=== PATIENT | female | born 1950 | race Caucasian/White ===

== ENCOUNTER 2022-10-06 08:58 | Emergency (ER) | payer MEDICARE ==
[~2022-10-06] VITALS: Ht 160 cm; Wt 50.5 kg
[~2022-10-06 08:58] MED LIST: ATOR20TA PO; DIAZ5TAB5 PO; DISU250T14 PO; DIVA250T8 PO; FLUT16SP26 BOTHNARES; HYDR50TA65 PO; MULT-620 PO; OLME20TA23 PO; THIA100T70 PO; ZALE5CAP2 PO
[2022-10-06] MEDS ORDERED: metoclopramide 5 mg/ml inj IV ONE (09:25)
[2022-10-06] MEDS ORDERED: famotidine/PF 10 mg/ml inj IV ONE (09:25)
[2022-10-06] MEDS ORDERED: normal saline 1000ML IV soln IVB ONE (09:25)
[2022-10-06 09:29] LABS: BASOPHILS % (AUTO) 0.2 % (0-1); EOSINOPHILS % (AUTO) 0.4 % (0-6); HEMATOCRIT 44.6 % (35.0-45.0); HEMOGLOBIN 14.9 g/dl (12.0-16.0); LYMPHOCYTES # (AUTO) 1.4 X10'3 (1.1-4.8); LYMPHOCYTES % (AUTO) 18.9 % (21-51); MEAN CORPUSCULAR HEMOGLOBIN 29.4 PG (27.0-31.0); MEAN CORPUSCULAR HGB CONC 33.4 g/dL (33.0-36.5); MEAN PLATELET VOLUME 8.2 FL (7.4-10.4); MONOCYTES # (AUTO) 0.5 X10'3 (0-0.9); MONOCYTES % (AUTO) 6.8 % (2-12); NEUTROPHILS # (AUTO) 5.3 X10'3 (1.8-7.7); NEUTROPHILS % (AUTO) 73.7 % (42-75); PLATELET COUNT 305 X10'3 (140-440); RED BLOOD COUNT 5.06 X10'6 (4.20-5.60); RED CELL DISTRIBUTION WIDTH 13.9 % (11.5-14.5); WHITE BLOOD COUNT 7.2 X10'3 (4.5-11.0)
[2022-10-06 09:43] LABS: ALANINE AMINOTRANSFERASE 28 U/L (12-78); ALBUMIN 4.7 G/DL (3.4-5.0); ALBUMIN/GLOBULIN RATIO 1.5 (1.1-1.5); ALKALINE PHOSPHATASE 97 IU/L (46-116); ANION GAP 8 (8-16); ASPARTATE AMINO TRANSFERASE 20 U/L (10-37); BILIRUBIN,TOTAL 0.7 MG/DL (0.1-1.0); BLOOD UREA NITROGEN 17 MG/DL (7-18); CALCIUM 9.5 MG/DL (8.5-10.1); CHLORIDE 102 MMOL/L (99-107); GLUCOSE 135 MG/DL (70-104); LIPASE 58 U/L (73-393); POTASSIUM 3.6 MMOL/L (3.5-5.1); SODIUM 139 MMOL/L (135-145); TOTAL CARBON DIOXIDE 28.8 MMOL/L (24-32); TOTAL PROTEIN 7.8 G/DL (6.4-8.2); eGFR 54 ML/MIN
[2022-10-06] MEDS ORDERED: METO-292 PO (10:38)
[2022-10-06 11:17] VITALS: BP 186/77
== END 2022-10-06 11:18 | disposition home or self-care (01) ==
LOC: ER 08:58
DX: R11.2 Nausea with vomiting, unspecified (principal); E86.0 Dehydration; I10 Essential (primary) hypertension; R53.83 Other fatigue; Z88.0 Allergy status to penicillin; Z88.6 Allergy status to analgesic agent
CPT/HCPCS: 36415; 74176; 80053; 83690; 85025; 93005; 96361; 96374; 96375; 99285; J2765; J3490; J7030

== ENCOUNTER 2022-11-10 09:54 | Emergency (ER) | payer MEDICARE ==
[~2022-11-10] VITALS: Ht 160 cm; Wt 52.4 kg
[~2022-11-10 09:54] MED LIST changes: +METO-292 PO
[2022-11-10 10:40] LABS: BASOPHILS % (AUTO) 0.4 % (0-1); EOSINOPHILS % (AUTO) 0.1 % (0-6); HEMATOCRIT 40.6 % (35.0-45.0); HEMOGLOBIN 13.6 g/dl (12.0-16.0); LYMPHOCYTES % (AUTO) 12.5 % (21-51); MEAN CORPUSCULAR HEMOGLOBIN 29.9 PG (27.0-31.0); MEAN CORPUSCULAR HGB CONC 33.4 g/dL (33.0-36.5); MEAN CORPUSCULAR VOLUME 89.4 FL (78-98); MEAN PLATELET VOLUME 8.8 FL (7.4-10.4); MONOCYTES # (AUTO) 0.6 X10'3 (0-0.9); MONOCYTES % (AUTO) 6.6 % (2-12); NEUTROPHILS # (AUTO) 6.8 X10'3 (1.8-7.7); NEUTROPHILS % (AUTO) 80.4 % (42-75); PLATELET COUNT 354 X10'3 (140-440); RED BLOOD COUNT 4.54 X10'6 (4.20-5.60); RED CELL DISTRIBUTION WIDTH 15.2 % (11.5-14.5); WHITE BLOOD COUNT 8.4 X10'3 (4.5-11.0)
[2022-11-10 10:49] LABS: ALANINE AMINOTRANSFERASE 26 U/L (12-78); ALBUMIN 4.3 G/DL (3.4-5.0); ALBUMIN/GLOBULIN RATIO 1.3 (1.1-1.5); ALKALINE PHOSPHATASE 105 IU/L (46-116); ANION GAP 8 (8-16); ASPARTATE AMINO TRANSFERASE 18 U/L (10-37); BILIRUBIN,TOTAL 0.4 MG/DL (0.1-1.0); BLOOD UREA NITROGEN 14 MG/DL (7-18); BUN/CREATININE RATIO 14.1 (10.0-20.0); CHLORIDE 107 MMOL/L (99-107); CREATININE 0.99 MG/DL (0.40-0.90); GLUCOSE 131 MG/DL (70-104); LIPASE 52 U/L (73-393); SODIUM 142 MMOL/L (135-145); TOTAL CARBON DIOXIDE 27.4 MMOL/L (24-32); TOTAL PROTEIN 7.7 G/DL (6.4-8.2); eGFR 55 ML/MIN
[2022-11-10] MEDS ORDERED: normal saline 1000ml 1,000 ML IV ONE (10:50)
[2022-11-10] MEDS ORDERED: metoclopramide 5 mg/ml inj IV ONE (10:50)
[2022-11-10] MEDS ORDERED: pantoprazole 40mg IV 80 MG in normal saline 100ml IV soln 100 ML IV ONE (10:50)
[2022-11-10 10:55] LABS: CALCIUM 9.1 MG/DL (8.5-10.1)
[2022-11-10 11:35] LABS: CLARITY,URINE SLIGHTLY CLOUDY (Clear); COLOR,URINE YELLOW (Yellow); GLUCOSE, URINE NEGATIVE (Neg); KETONES,URINE TRACE mg/dl (Neg); LEUKOCYTE ESTERASE ,URINE TRACE (Neg); NITRITES, URINE NEGATIVE (Neg); OCCULT BLOOD,URINE NEGATIVE (Neg); PROTEIN,URINE TRACE mg/dl (Neg); UROBILINOGEN,URINE 0.2 E.U/dL (0.2-1.0)
[2022-11-10 11:50] LABS: UA COLLECTION TYPE CLN CATCH MIDSTREAM
[2022-11-10 11:57] LABS: MUCUS STRANDS MANY /LPF (Neg); SQUAMOUS EPITHELIAL CELL,UR MODERATE /LPF (FEW)
[2022-11-10 11:58] LABS: BACTERIA,URINE 1+ /HPF (Neg); RBC,URINE 0-2 /HPF (0-2); TRANSITIONAL EPI CELLS,URINE MODERATE /HPF; WBC,URINE 0-4 /HPF (0-4)
[2022-11-10 12:49] VITALS: BP 157/69
[2022-11-10] MEDS ORDERED: PANT-47 PO (12:56)
[2022-11-10] MEDS ORDERED: METO-292 PO (12:56)
[2022-11-10] MEDS ORDERED: NITR100C6 PO (12:56)
== END 2022-11-10 13:46 | disposition home or self-care (01) ==
LOC: ER 09:54
DX: R11.2 Nausea with vomiting, unspecified (principal); N39.0 Urinary tract infection, site not specified; E86.0 Dehydration; I10 Essential (primary) hypertension; G89.29 Other chronic pain; M54.9 Dorsalgia, unspecified; F31.9 Bipolar disorder, unspecified; Z88.0 Allergy status to penicillin; Z88.5 Allergy status to narcotic agent; Z88.6 Allergy status to analgesic agent; Z79.899 Other long term (current) drug therapy; Z79.1 Long term (current) use of non-steroidal anti-inflammatories (NSAID)
CPT/HCPCS: 36415; 80053; 81001; 83690; 85025; 87088; 96365; 96366; 96375; 99284; C9113; J2765; J3490; J7030

== ENCOUNTER 2023-10-17 20:20 | Emergency (ER) | payer MEDICARE ==
[~2023-10-17] VITALS: Ht 160 cm; Wt 53.2 kg
[~2023-10-17 20:20] MED LIST changes: -DISU250T14 PO; +DISU250T15 PO; +NITR100C6 PO; -OLME20TA23 PO; +OLME20TA69 PO; +PANT-47 PO
[2023-10-17 20:28] VITALS: BP 146/122; PULSE 8; RESP 16; TEMP 98.1; O2SAT 100
[2023-10-17 20:50] LABS: BASOPHILS % (AUTO) 0.4 % (0-1); EOSINOPHILS # (AUTO) 0.2 X10'3 (0-0.9); EOSINOPHILS % (AUTO) 2.5 % (0-6); HEMATOCRIT 29.4 % (35.0-45.0); HEMOGLOBIN 9.8 g/dl (12.0-16.0); LYMPHOCYTES # (AUTO) 2.2 X10'3 (1.1-4.8); LYMPHOCYTES % (AUTO) 27.4 % (21-51); MEAN CORPUSCULAR HEMOGLOBIN 27.3 PG (27.0-31.0); MEAN CORPUSCULAR HGB CONC 33.2 g/dL (33.0-36.5); MEAN CORPUSCULAR VOLUME 82.1 FL (78-98); MEAN PLATELET VOLUME 8.1 FL (7.4-10.4); MONOCYTES # (AUTO) 0.4 X10'3 (0-0.9); NEUTROPHILS # (AUTO) 5.2 X10'3 (1.8-7.7); NEUTROPHILS % (AUTO) 64.7 % (42-75); PLATELET COUNT 269 X10'3 (140-440); RED BLOOD COUNT 3.58 X10'6 (4.20-5.60); RED CELL DISTRIBUTION WIDTH 13.9 % (11.5-14.5); WHITE BLOOD COUNT 8.1 X10'3 (4.5-11.0)
[2023-10-17 21:11] LABS: ALBUMIN 3.2 G/DL (3.4-5.0); ANION GAP 9 (8-16); BLOOD UREA NITROGEN 26 MG/DL (7-18); BUN/CREATININE RATIO 23.6 (10.0-20.0); CALCIUM 8.7 MG/DL (8.5-10.1); CHLORIDE 103 MMOL/L (99-107); GLUCOSE 133 MG/DL (70-104); POTASSIUM 3.7 MMOL/L (3.5-5.1); PRO BRAIN NATRIURETIC PEPTIDE 212 PG/ML (0-125); SODIUM 137 MMOL/L (135-145); TOTAL CARBON DIOXIDE 25.3 MMOL/L (24-32); eCRCL 37 ML/MIN; eGFR 49 ML/MIN
[2023-10-17] MEDS: LIDOcaine 1% W/epiNEPHrine 1:100,000 20ml vial SQ ONE (21:45)
[2023-10-17] MEDS ORDERED: ONDA4TAB12 PO (22:57)
[2023-10-17] MEDS ORDERED: HYDR-3965 PO (22:57)
== END 2023-10-17 23:16 | disposition home or self-care (01) ==
LOC: ER 20:21
DX: S82.001A Unspecified fracture of right patella, initial encounter for closed fracture (principal); M25.061 Hemarthrosis, right knee; I10 Essential (primary) hypertension; G89.29 Other chronic pain; F41.9 Anxiety disorder, unspecified; F32.A Depression, unspecified; Z88.0 Allergy status to penicillin; Z88.8 Allergy status to other drugs, medicaments and biological substances; Z79.899 Other long term (current) drug therapy; W18.30XA Fall on same level, unspecified, initial encounter; Y93.89 Activity, other specified; Y92.89 Other specified places as the place of occurrence of the external cause; Y99.8 Other external cause status
CPT/HCPCS: 20610; 36415; 71045; 73564; 80048; 83880; 84484; 85025; 93005; 99285; A6402; A6449

== ENCOUNTER 2023-10-19 13:53 | Emergency (ER) | payer MEDICARE ==
[~2023-10-19] VITALS: Ht 162.6 cm; Wt 52.3 kg
[~2023-10-19 13:53] MED LIST changes: +HYDR-3965 PO; +ONDA4TAB12 PO
[2023-10-19] MEDS: oxyCODONE IR 5mg (immed. release) tablet PO ONE (15:50)
[2023-10-19 17:17] VITALS: BP 134/70; PULSE 82; RESP 20; TEMP 97.9; O2SAT 97
== END 2023-10-19 17:19 | disposition home or self-care (01) ==
LOC: ER 13:54
DX: S82.001A Unspecified fracture of right patella, initial encounter for closed fracture (principal); I10 Essential (primary) hypertension; G89.29 Other chronic pain; M54.9 Dorsalgia, unspecified; F41.9 Anxiety disorder, unspecified; F32.A Depression, unspecified; Z88.0 Allergy status to penicillin; Z88.8 Allergy status to other drugs, medicaments and biological substances; Z79.899 Other long term (current) drug therapy; W18.30XA Fall on same level, unspecified, initial encounter; Y93.89 Activity, other specified; Y92.89 Other specified places as the place of occurrence of the external cause; Y99.8 Other external cause status
CPT/HCPCS: 73700; 99284

== ENCOUNTER 2024-01-22 20:52 | Emergency (ER) | payer MEDICARE ==
[~2024-01-22] VITALS: Ht 157.5 cm; Wt 63.6 kg
[~2024-01-22 20:52] MED LIST changes: -HYDR-3965 PO; +ONDA-243 PO; -ONDA4TAB12 PO
[2024-01-22 21:37] LABS: BASOPHILS # (AUTO) 0.1 X10'3 (0-0.2); EOSINOPHILS # (AUTO) 0.3 X10'3 (0-0.9); EOSINOPHILS % (AUTO) 6.3 % (0-6); HEMATOCRIT 28.3 % (35.0-45.0); LYMPHOCYTES # (AUTO) 1.4 X10'3 (1.1-4.8); LYMPHOCYTES % (AUTO) 25.6 % (21-51); MEAN CORPUSCULAR HEMOGLOBIN 25.1 PG (27.0-31.0); MEAN CORPUSCULAR HGB CONC 31.9 g/dL (33.0-36.5); MEAN CORPUSCULAR VOLUME 78.7 FL (78-98); MEAN PLATELET VOLUME 7.6 FL (7.4-10.4); MONOCYTES # (AUTO) 0.5 X10'3 (0-0.9); MONOCYTES % (AUTO) 8.9 % (2-12); NEUTROPHILS # (AUTO) 3.2 X10'3 (1.8-7.7); NEUTROPHILS % (AUTO) 58.2 % (42-75); PLATELET COUNT 348 X10'3 (140-440); RED BLOOD COUNT 3.59 X10'6 (4.20-5.60); RED CELL DISTRIBUTION WIDTH 17.5 % (11.5-14.5); WHITE BLOOD COUNT 5.4 X10'3 (4.5-11.0)
[2024-01-22 21:57] LABS: ALANINE AMINOTRANSFERASE 32 U/L (12-78); ALBUMIN 3.3 G/DL (3.4-5.0); ALBUMIN/GLOBULIN RATIO 1.1 (1.1-1.5); ALKALINE PHOSPHATASE 165 IU/L (46-116); ANION GAP 10 (8-16); ASPARTATE AMINO TRANSFERASE 19 U/L (10-37); BILIRUBIN,TOTAL 0.2 MG/DL (0.1-1.0); BLOOD UREA NITROGEN 14 MG/DL (7-18); BUN/CREATININE RATIO 15.2 (10.0-20.0); CALCIUM 8.3 MG/DL (8.5-10.1); CHLORIDE 110 MMOL/L (99-107); CREATININE 0.92 MG/DL (0.40-0.90); GLUCOSE 109 MG/DL (70-104); POTASSIUM 4.3 MMOL/L (3.5-5.1); SODIUM 145 MMOL/L (135-145); TOTAL CARBON DIOXIDE 24.9 MMOL/L (24-32); TOTAL PROTEIN 6.3 G/DL (6.4-8.2); eCRCL 42 ML/MIN; eGFR 60 ML/MIN
[2024-01-22 21:58] LABS: BILIRUBIN,URINE NEGATIVE (Neg); CLARITY,URINE SLIGHTLY CLOUDY (Clear); COLOR,URINE STRAW (Yellow); GLUCOSE, URINE NEGATIVE (Neg); KETONES,URINE NEGATIVE (Neg); LEUKOCYTE ESTERASE ,URINE NEGATIVE (Neg); NITRITES, URINE NEGATIVE (Neg); OCCULT BLOOD,URINE NEGATIVE (Neg); PROTEIN,URINE NEGATIVE (Neg); UROBILINOGEN,URINE 0.2 E.U/dL (0.2-1.0)
[2024-01-22 22:01] LABS: BILIRUBIN,DIRECT 0.1 MG/DL (0-0.3); ETHANOL 59 MG/DL (<10); MAGNESIUM 2.1 MG/DL (1.5-2.4); PRO BRAIN NATRIURETIC PEPTIDE 628 PG/ML (0-450)
[2024-01-22 22:01] LABS: UA COLLECTION TYPE CLN CATCH MIDSTREAM
[2024-01-22 22:03] LABS: WBC,URINE 0-4 /HPF (0-4)
[2024-01-22 22:04] LABS: BACTERIA,URINE FEW /HPF (Neg); RBC,URINE 0-2 /HPF (0-2); SQUAMOUS EPITHELIAL CELL,UR FEW /LPF (FEW)
[2024-01-22 22:05] LABS: URINE AMPHETAMINE SCREEN NEGATIVE (Neg); URINE BARBITUATE SCREEN NEGATIVE (Neg); URINE BENZODIAZEPINES SCREEN POSITIVE (Neg); URINE COCAINE SCREEN NEGATIVE (Neg)
[2024-01-22 22:06] LABS: URINE CANNABINOID SCREEN NEGATIVE (Neg); URINE METHADONE SCREEN NEGATIVE (Neg); URINE OPIATE SCREEN NEGATIVE (Neg); URINE PHENCYCLIDINE SCREEN NEGATIVE (Neg)
[2024-01-22] MEDS ORDERED: ZOLP5TAB2 PO (23:35)
[2024-01-22] MEDS: QUEtiapine 25mg tablet PO SCH (23:59)
[2024-01-22] MEDS: furosemide 20MG tablet PO ONE (23:59)
[2024-01-23 00:06] VITALS: BP 142/70; PULSE 92; RESP 16; TEMP 98; O2SAT 96
== END 2024-01-23 00:08 | disposition home or self-care (01) ==
LOC: ER 20:53
DX: R60.9 Edema, unspecified (principal); D50.0 Iron deficiency anemia secondary to blood loss (chronic); G47.00 Insomnia, unspecified; I10 Essential (primary) hypertension; G89.29 Other chronic pain; M54.9 Dorsalgia, unspecified; F41.9 Anxiety disorder, unspecified; F32.A Depression, unspecified; Z88.0 Allergy status to penicillin; Z88.6 Allergy status to analgesic agent; Z88.5 Allergy status to narcotic agent; Z79.899 Other long term (current) drug therapy
CPT/HCPCS: 36415; 71045; 80048; 80076; 80305; 81001; 83735; 83880; 84484; 85025; 93005; 99285; G0480; 80320

== ENCOUNTER 2024-02-06 08:20 | Day surgery (SDC) | payer MEDICARE ==
[~2024-02-06] VITALS: Ht 160 cm; Wt 56.8 kg
[~2024-02-06 08:20] MED LIST changes: +AMLO5TAB16 PO; -ATOR20TA PO; -DIAZ5TAB5 PO; -DISU250T15 PO; -DIVA250T8 PO; +FERR-39 PO; -FLUT16SP26 BOTHNARES; +LOSA100T58 PO; -METO-292 PO; -MULT-620 PO; -NITR100C6 PO; -OLME20TA69 PO; -ONDA-243 PO; +QUET25TA36; -ZALE5CAP2 PO
[2024-02-06 08:52] VITALS: BP 152/65; PULSE 87; RESP 17
[2024-02-06] MEDS ORDERED: simethicone 40mg/0.6ml oral drops 30ml ONE (09:30)
[2024-02-06] MEDS ORDERED: LIDOcaine 2% Viscous 15ml cup ONE (09:41)
[2024-02-06] MEDS ORDERED: MIDAZolam 1 MG/ML 5ML VIAL ONE ×2 (09:43→10:04)
[2024-02-06] MEDS ORDERED: diphenhydrAMINE 50 mg/ml inj ONE (09:43)
[2024-02-06] MEDS ORDERED: fentaNYL/PF 50MCG/1 ML 2ML syringe ONE ×2 (09:43→10:18)
[2024-02-06 10:34] VITALS: BP 123/59; PULSE 80; RESP 17; O2SAT 96
[2024-02-06 10:44] VITALS: BP 133/53; PULSE 77; RESP 14; O2SAT 97
[2024-02-06 10:55] VITALS: BP 134/53; PULSE 74; RESP 13; O2SAT 96
[2024-02-06 11:05] VITALS: BP 135/56; PULSE 75; RESP 17; O2SAT 96
== END 2024-02-06 11:24 | disposition home or self-care (01) ==
LOC: GI LAB 08:20
PROVIDERS: ATTEND Internal Medicine Gastroenterology
DX: D50.0 Iron deficiency anemia secondary to blood loss (chronic) (principal); K64.8 Other hemorrhoids; K57.30 Diverticulosis of large intestine without perforation or abscess without bleeding
CPT/HCPCS: 43239; 45378; 99153; A4620; G0500; J1200; J2250; J3010; J7030; Z7512; 88305; 99152

== ENCOUNTER 2024-02-12 15:42 | Emergency (ER) | payer MEDICARE ==
[~2024-02-12] VITALS: Ht 160 cm; Wt 64.4 kg
[2024-02-12] MEDS: HYDROmorphone inj. 0.5 MG/0.5 ML DISP.SYRIN IM ONE (17:21)
[2024-02-12] MEDS: fentaNYL 50MCG/ML 2ML intranasal KIT (WASTE REMAINDER W/WITNESS) NAS STA (17:22)
[2024-02-12] MEDS ORDERED: HYDR-3965 PO (17:57)
[2024-02-12 18:54] VITALS: BP 137/97; PULSE 66; RESP 20; TEMP 97.9; O2SAT 99
== END 2024-02-12 18:57 | disposition home or self-care (01) ==
LOC: ER 15:43
DX: S82.842A Displaced bimalleolar fracture of left lower leg, initial encounter for closed fracture (principal); I10 Essential (primary) hypertension; G89.29 Other chronic pain; F41.9 Anxiety disorder, unspecified; F32.A Depression, unspecified; Z88.0 Allergy status to penicillin; Z88.5 Allergy status to narcotic agent; Z88.6 Allergy status to analgesic agent; Z79.899 Other long term (current) drug therapy; W19.XXXA Unspecified fall, initial encounter; Y93.89 Activity, other specified; Y92.89 Other specified places as the place of occurrence of the external cause; Y99.8 Other external cause status
CPT/HCPCS: 27810; 73600; 73610; 99284; A6446; A6449; J3010